=== PATIENT | female | born 1940 | race Caucasian/White ===

== ENCOUNTER → 2018-01-31 | Outpatient (CLI) | payer MEDICARE ==
[~2018-01-31] MED LIST: CALC1TAB16 PO; FISH100020 PO; LOSA50TA PO; LUTE20CA PO; MAPA500T13 PO; NEXI40CA PO; VITA1000 PO; VITA200C3 PO
[2018-01-31 09:42] LABS: CALCIUM 9.4 MG/DL (8.5-10.1); CREATININE 0.75 MG/DL (0.50-1.00)
== END ==
LOC: OLAB 07:44
PROVIDERS: ATTEND Obstetrics & Gynecology
DX: R53.81 Other malaise (principal); M85.89 Other specified disorders of bone density and structure, multiple sites; E55.9 Vitamin D deficiency, unspecified; R29.890 Loss of height
CPT/HCPCS: 36415; 80048; 82306; 83970; 84443